=== PATIENT | male | born 1940 | race Caucasian/White ===

== ENCOUNTER 2017-10-21 14:28 | Emergency (ER) | payer OTHER, BC ==
[~2017-10-21] VITALS: Ht 165.1 cm; Wt 85.1 kg
[~2017-10-21 14:28] MED LIST: ANTI-DIARRHEA2 MG PO; ASCORBIC ACID500 M3 PO; IMODIUM MS REL1 EACH PO; IMURAN PO; IMURAN50 MG PO; MEDROL DOSEPAK4 MG PO; MESTINON PO; MESTINON60 MG PO; NORCO 5/3251 TABLET PO; PREVACID30 MG PO; SYNTHROID175 MCG PO; VALIUM5 MG PO
[2017-10-21] MEDS ORDERED: FLEXERIL10 MG PO (16:33)
[2017-10-21 16:50] VITALS: BP 185/84
== END 2017-10-21 16:50 | disposition home or self-care (01) ==
LOC: EME 14:28
DX: S76.912A Strain of unspecified muscles, fascia and tendons at thigh level, left thigh, initial encounter (principal); S46.912A Strain of unspecified muscle, fascia and tendon at shoulder and upper arm level, left arm, initial encounter; W01.0XXA Fall on same level from slipping, tripping and stumbling without subsequent striking against object, initial encounter; K21.9 Gastro-esophageal reflux disease without esophagitis; Z85.828 Personal history of other malignant neoplasm of skin; Z96.651 Presence of right artificial knee joint; Z87.891 Personal history of nicotine dependence
CPT/HCPCS: 99281; 99284; J1885